=== PATIENT | male | born 1950 | race Caucasian/White ===

== ENCOUNTER 2021-05-14 09:30 | Outpatient (CLI) | payer MEDICARE, SELFPAY ==
--- NOTE | ~2021-05-14 | XR_ITS ---
EXAMINATION: XR knee LT 3V DATE: 05/14/2021 10:02 INDICATION: Arthropathic psoriasis, unspecified. TECHNIQUE: 3 views of left knee including standing views were obtained. COMPARISON: None. FINDINGS: There is lateral subluxation of patella. No fracture. There is mild osteoarthritis of media l and lateral compartments and moderate osteoarthritis of patellofemoral compartment. There is a smal l knee joint effusion. IMPRESSION: 1. Moderate left knee osteoarthritis. 2. Small left knee joint effusion. Reviewed, dictated and finalized at location A.
--- NOTE | ~2021-05-14 | XR_ITS ---
EXAMINATION: XR cervical spine 4-5V EXAM DATE: 05/14/2021 10:02 INDICATION: L40.50 - Arthropathic psoriasis, unspecified. TECHNIQUE: Cervical spine frontal, lateral, lateral swimmers, and open-mouth odontoid projections. There is no prior study for comparison. FINDINGS: There is moderate disc disease at C5-6, otherwise mild cervical disc disease. There is mod erate to severe cervical facet arthropathy, probably overall moderate uncovertebral joint arthropathy . The vertebral bodies are aligned in the AP dimension. The odontoid process is intact. The lateral masses of C1 line up with C2. Prevertebral soft tissue and pre-dens space are within normal limits. Lung apices are clear. IMPRESSION: Moderate to severe cervical spondylosis. Reviewed, dictated and finalized at location A.
--- NOTE | ~2021-05-14 | XR_ITS ---
EXAMINATION: XR sacroiliac joints min 3V, XR lumbar spine min 4V EXAM DATE: 05/14/2021 10:02 INDICATION: L40.50 - Arthropathic psoriasis, unspecified . TECHNIQUE: Lumber spine frontal, lateral, bilateral oblique projections. Coned down frontal and lat eral L5-S1 lumbar projections for interpretation. Sacroiliac joint frontal, bilateral oblique projec tions. There are no prior studies for comparison. FINDINGS: Mild to moderate diffuse lumbar disc disease, small to moderate endplate osteophytes. Moderate lumbar facet arthropathy. There is mild anterior wedging of the L1 vertebral body, mild compression fractur e but no findings to specifically suggest this is acute. There is moderate symmetric bilateral hip pr imary osteoarthritis. The sacroiliac joints are symmetric with mild to moderate arthritic change, no ankylosis suspected. T here are no bony erosions identified. Mild aortic arterial sclerosis. Calcifications in the pelvis ar e believed to be phleboliths. IMPRESSION: 1. Mild L1 compression fracture probably chronic. 2. Mild to moderate lumbar disc disease, moderate arthropathy. 3. 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 4. Moderate bilateral hip osteoarthritis. Reviewed, dictated and finalized at location A. IMPRESSION: 1. Mild L1 compression fracture probably chronic. 2. Mild to moderate lumbar disc disease, moderate arthropathy. 3. 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 4. Moderate bilateral hip osteoarthritis.
--- NOTE | ~2021-05-14 | XR_ITS ---
EXAMINATION: XR knee RT 3V DATE: 05/14/2021 10:02 INDICATION: Arthropathic psoriasis, unspecified. TECHNIQUE: 3 views of right knee including standing views were obtained. COMPARISON: None. FINDINGS: Bone alignment is normal. No fracture. There is mild tricompartmental osteoarthritis. There is a small knee joint effusion. IMPRESSION: 1. Mild right knee osteoarthritis. 2. Small right knee joint effusion. Reviewed, dictated and finalized at location A.
== END 2021-05-14 09:31 | disposition home or self-care (01) ==
PROVIDERS: PCP Family Medicine; Visit Provider Internal Medicine
DX: L40.50 Arthropathic psoriasis, unspecified (principal); M47.812 Spondylosis without myelopathy or radiculopathy, cervical region; M48.56XA Collapsed vertebra, not elsewhere classified, lumbar region, initial encounter for fracture; M51.9 Unspecified thoracic, thoracolumbar and lumbosacral intervertebral disc disorder; M47.898 Other spondylosis, sacral and sacrococcygeal region; M16.0 Bilateral primary osteoarthritis of hip; M25.461 Effusion, right knee; M25.462 Effusion, left knee; M17.0 Bilateral primary osteoarthritis of knee
CPT/HCPCS: 72050; 72110; 72202; 73562

== ENCOUNTER 2021-12-16 00:07 | Day surgery (SDC) | payer MEDICARE, SELFPAY ==
[2021-12-09 10:10] VITALS: BMI 24.6
--- NOTE | 2021-12-09 10:26 | PC.NURSE ---
Report to the Outpatient Waiting Room, entrance under the green pavilion located off [facility], at time __7:00AM on date __12/16/21 . Planned Procedure Time: __9:00AM . Time changes happen often and if your time is changed the preop area will call you the afternoon before. - You and your visitor will be asked to self-screen and do not enter if you have any COVID symptoms. - We encourage only one visitor and NO visitors under age 16 are allowed at this time. Your visitor will receive communication by the phone number that is given day of service. - The patient visitor is requested to social distance or may leave the building when not with patient due to restrictions. - A mask is required within the hospital. Patients may have clear liquids (water, carbonated beverages, clear teas, apple juice) until 3 hours prior to surgery with a maximum of 20 ounces. - No food from midnight until time of surgery - Infants may have breast milk until 4 hours before surgery, formula 6 hours prior to surgery. - Children will be allowed to drink immediately following surgery. If applicable, please bring a bottle or sippy cup to assist with drinking. Juice, water, soda, and popsicles are readily available. For infants on formula, please bring formula the day of surgery. Pacifiers are allowed. Take the following medications with a SIP of water the morning of surgery: ___NONE Medications to discontinue per physician ___HOLD ALL VITAMINS/SUPPLEMENTS 3 DAYS PRE-OP Date to take last dose___12/12/21 Please no make-up, nail german, hairspray, perfume, deodorant, or body powder the day of surgery. No jewelry (including any body piercings) or valuables the day of surgery, leave them at home. Please take a shower or bath the night before, or the morning of, surgery with an antibacterial soap. Wear comfortable, loose fitting clothing. Children are encouraged to wear pajamas. - Jewelry must be removed prior to entering the operating room. Rings and piercings that are not removed may be cut off. - The hospital will not accept responsibility for valuables. - Please leave all valuables, including medications, at home the day of surgery. If you are going home after surgery, a licensed otr tanker truck driver must drive you home. - NO public transportation without another adult. - We recommend that an adult stay with you for 24 hours following discharge. - We also recommend that you do not drive, make important decision, drink alcoholic beverages, or take any drugs that were not prescribed by your health care provider for at least 24 hours after your discharge time. For Pediatric surgeries, we recommend two adults accompany the child home. Follow any additional instructions given to you from your surgeon. If you or anyone in your household have experienced Covid symptoms in the past week, please notify your surgeon or the nurse liaison at the phone number below for possible testing. Telephone instructions given to __PATIENT and asked if any additional questions and then verbalized understanding. Patient advised to call surgeon office or pre surgery nurse liaison [phone] if any additional questions.
[2021-12-16] VITALS (9 sets, daily range): BP systolic 131–173; BP diastolic 67–87; PULSE 55–87; RESP 12–20; TEMP 36.4–36.7; O2SAT 97–100
[2021-12-16] MEDS: ACETAMINOPHEN 500 MG TABLET 1000 MG PO (08:13)
[2021-12-16] MEDS: KETOROLAC 15 MG/ML VIAL (*BKC) IV PUSH (08:13)
[2021-12-16] MEDS: LACTATED RINGERS 1,000 ML 30 ML IV CONT ×2 (08:16→10:51)
--- NOTE | 2021-12-16 08:23 | WPDHPUPDATE1 ---
History and Physical Update Update Date/Time: 12/16/21 08:23 History and Physical has been reviewed, including an updated exam of the patient. There are NO changes in the patient's condition. Risks, benefits, and alternatives have been discussed and questions answered. Patient agrees to proceed with procedure.
--- NOTE | 2021-12-16 08:30 | SUR.PREOP ---
PER DR ORELLANA, YES TO GIVE PATIENT ANCEF 2GM
--- NOTE | 2021-12-16 08:32 | WPDANESEPPF ---
Anes - Initial Pre Proc Eval Procedure: Operation Date: 12/16/21 09:00 Proposed Procedures p Laparoscopic Totally Extraperitoneal Recurrent Right Inguinal Hernia Repair with Mesh, Possible Open - Flaco Santiago MD Date/Time: 12/16/21 08:32 Surgeon: Flaco Santiago MD Pre Op Diagnosis: recurrent right inguinal hernia Patient Data Age: 71 Gender: M Height: 1.78 m Weight: 78 kg Last Vital Signs Temp 97.5 F L 12/16/21 07:10 Pulse 55 L 12/16/21 07:10 Resp 18 12/16/21 07:10 BP 173/73 H 12/16/21 07:10 Pulse Ox 100 12/16/21 07:10 O2 Del Method Room Air 12/16/21 07:10 Allergies Allergy/AdvReac Type Severity Reaction Status Date / Time No Known Allergies Allergy Mild Verified 12/16/21 08:07 Home Medications Medication Instructions Recorded Confirmed Type aspirin 81 mg tablet,delayed 81 mg PO DAILY 03/10/19 12/16/21 History release (Adult Low Dose Aspirin) terazosin 10 mg capsule See Rx Instructions .Route 07/15/21 12/16/21 Rx .COMPLEX #90 caps finasteride 5 mg tablet 5 mg PO DAILY 12/05/21 12/16/21 History omega 4-efo-otu-fish oil 1,200 mg 2 cap PO DAILY 12/05/21 12/16/21 History (144 mg-216 mg) capsule (Fish Oil) tadalafil 20 mg tablet 20 mg PO DAILY 12/05/21 12/16/21 History Patient hx anesthesia problems: none Family hx anesthesia problems: none Results Review: All pre-operative results and documents have been reviewed as part of the pre-operative evaluation. [facility] Past Medical History Medical History (Updated 12/10/21 @ 09:29 by Danny Santamaria MD) BPH loc w urin obs/LUTS Erectile dysfunction Generalized osteoarthritis of multiple sites Gilbert disease Low back pain Psoriatic arthritis (~2017) Psoriatic spondylitis Vasculitis Surgical History Surgical History History of hernia surgery bilateral inguinal hernia repair as infant; Left inguinal hernia repair 20-25 yrs ago Family History Family History Mother Family history of transient ischemic attacks Family history of cardiovascular disease Family history of arthritis Family history of coronary artery disease Family history of malignant neoplasm of kidney Father Family history of Alzheimer's disease Family history of malignant neoplasm of skin Unknown Diabetes mellitus Social History Social History Social History: Caffeine- diet soda daily Smoking status: Never smoker Second hand tobacco smoke exposure: No Alcohol intake: current Drinks per week: 2 Alcohol use details: red wine Substance use: never Substance use type: does not use Living arrangements: with family Additional living arrangements comments: SPOUSE Spiritual care concerns: No Anes - Eval Final PreProcedure Day of Procedure 12/16/21 08:32 Patient weight: normal Heart: regular rate and rhythm Lungs: clear to auscultation Airway: Mallampati scale class III Neurological: alert and oriented Last oral intake: >/= 8 hours ASA classification: II Emergent: no Anesthetic plan: proceed Anesthesia type and monitoring: general ETT (may need glidescope) and standard monitoring Results Review: All pre-operative results and documents have been reviewed as part of the pre-operative evaluation. Informed Consent: The patient's anesthetic plan and its attendant risks and benefits were discussed with the patient/family/POA. Questions were solicited and answers provided to the satisfaction of the patient/family/POA.
[2021-12-16] MEDS: ceFAZolin 2 GM/D5W 50 ML 2 GM/50 ML BAG IVPB (08:50)
[2021-12-16] MEDS: BUPIVACAINE/EPINEPHRINE 0.25% 50 ML VIAL 20 ML INFILTRATE (09:50)
--- NOTE | 2021-12-16 11:09 | W.PM.PROC2 ---
Procedure Note - Detailed Date of Procedure 12/16/21 Pre-op Diagnosis recurrent right inguinal hernia Post-op Diagnosis Other ( unilateral recurrent Direct inguinal hernia) Procedure Performed 1. laparoscopic totally extraperitoneal right recurrent inguinal hernia repair with mesh Surgeon Flaco Santiago MD Belt Buckle Maker RINA Lester ,[place] microbiology lab assistant Anesthesia General Indications bulging and pain on the Rt. groin. Please see history and physical for further details. This was starting to interfere with his typical activities which include pickleball. Findings Patient had a fairly good size direct inguinal hernia occurring just medial to the epigastric vessels on the right. The normal peritoneum on the right was tethered at the edge of the direct pseudo sac but was able to be and nicely pulled back toward the retroperitoneum, without getting a hole in it. Description of Procedure After appropriate marking of the operative site prior to surgery, the patient was taken to the operating room. After induction of adequate general endotracheal anesthesia by [facility] staff, the patient was carefully prepped and draped in a sterile fashion. A time-out was performed confirming the procedure and site of surgery on the right. Following this, local anesthetic was infiltrated into the umbilical area and a vertical incision was made just below the umbilicus. I carefully dissected down to the the anterior rectus sheath on the right and then made a 1 cm vertical slit in the fascia just off the midline. The rectus muscle was retracted to right and then just in front of the posterior rectus sheath, a dissecting balloon was passed onto the pubic bone. After placing slight pressure on the left groin area, this was insufflated with 35 pumps, while watching with the 0 degree laparoscope. It appeared that I was in the proper plane. Following this, the dissecting balloon was removed and replaced by a 130mm Perez cannula with a circular 30 cc conforming balloon. Following this, the 0 degree laparoscope was used to carefully place two 5mm [employer] slim trocars, just to the left of midline. One suprapubic and other one correction between the umbilicus and the pubic bone. Tedious dissection then occurred in the preperitoneal space exposing the Jesu's ligament, the cord structures, the muscular tissue anteriorly, and the retroperitoneum. Following this the freed-up pseudo sac of this direct hernia was grasped with a grasper through the more inferior 5 mm port and then a 5 mm Tacker was placed through the higher 5 mm port and 4 tacks were used to tack the pseudo sac to the muscle just anterior to the pubic tubercle. This nicely obliterated the space that had been previously occupied by the direct inguinal hernia. The pre-peritoneal fat was then able to be dissected back and we could visualize the posterior edge of the peritoneum. I then dissected up to the level of the umbilicus and it was ready for mesh placement. After carefully confirming all sites and that the mesh would cover the direct space, I carefully rolled the Large Lite 3D Bard mesh and slid this through the 12 mm trocar at the umbilical level down into the preperitoneal space. This unfurled nicely and sat nicely against the right groin structures. It nicely covered all spaces and it went back nicely into the preperitoneal space along the anterior-superior iliac spine. I then again placed the 5 mm Tacker through the more cephalad 5 mm port and placed 2 tacks through the mesh into the anterior abdominal wall medial to the epigastric vessels and also to lateral to the epigastric vessels. One was also placed through the mesh into the Jesu's ligament. I took a picture of it carefully, which showed that the mesh will cover the preperitoneal groin well, and had come down to the posterior border of the peritoneum. Once this was accomplished, I took the patient out of Trendelenburg position, rotated the samuel
--- NOTE | 2021-12-16 14:24 | SUR.PHASEII ---
1230 PATIENT VOIDED WITH GOOD STREAM X 1.
== END 2021-12-16 12:51 | disposition home or self-care (01) ==
PROVIDERS: PCP Family Medicine; Visit Provider Surgery
PROC: (CPT 49650; principal; 2021-12-16 09:00)
DX: K40.91 Unilateral inguinal hernia, without obstruction or gangrene, recurrent (principal); N40.1 Benign prostatic hyperplasia with lower urinary tract symptoms; N13.8 Other obstructive and reflux uropathy; L40.50 Arthropathic psoriasis, unspecified; E80.4 Gilbert syndrome; Z79.82 Long term (current) use of aspirin
CPT/HCPCS: 49651; 36415; 86850; 86900; 86901; A9270; C1781; J0330; J0690; J1885; J2250; J2405; J2704; J7030; J7120

== ENCOUNTER 2023-09-21 07:37 | Outpatient (NON) | payer MEDICARE, SELFPAY | END 2023-09-21 07:38 | disposition home or self-care (01) | LOC: ANHLAB 09-22 07:40 | PROVIDERS: PCP Family Medicine; Visit Provider Internal Medicine Gastroenterology | DX: Z12.11 Encounter for screening for malignant neoplasm of colon (principal); D12.5 Benign neoplasm of sigmoid colon | CPT/HCPCS: 88305 ==

== ENCOUNTER 2023-09-21 08:23 | Day surgery (SDC) | payer MEDICARE, SELFPAY ==
[2023-08-07 12:03] VITALS: BMI 24.5
[2023-09-09 10:54] VITALS: BMI 23.7
--- NOTE | 2023-09-09 11:14 | PC.NURSE ---
PT STATES HE HAS NOT RECEIVED BOWEL PREP INSTRUCTIONS YET. PT GIVEN GI OFFICE PHONE NUMBER AND INSTRUCTED TO CALL TODAY TO GET THE BOWEL PREP PAPERS.
--- NOTE | 2023-09-15 12:48 | PM.HPGS ---
History of Present Illness History of Present Illness Consent: Risks, benefits, and alternatives have been discussed and questions answered. Patient agrees to proceed with procedure. Chief complaint: Neoplasm screening. Narrative: Robert Reynoso is a 73 year old male who is referred for colon cancer screening. Review of Systems Review of Systems: All systems reviewed & are unremarkable except as noted in HPI and below PMFSH Past Medical History Medical History BPH loc w urin obs/LUTS Erectile dysfunction Generalized osteoarthritis of multiple sites Gilbert disease Low back pain Psoriatic arthritis (~2017) Psoriatic spondylitis Vasculitis Viral pneumonitis Surgical History Surgical History History of cataract surgery History of hernia surgery bilateral inguinal hernia repair as infant; Left inguinal hernia repair 20-25 yrs ago History of right inguinal hernia repair Laparoscopic totally extraperitoneal right recurrent inguinal hernia repair with mesh 12/16/21 Family History Family History Mother Family history of transient ischemic attacks Family history of cardiovascular disease Family history of arthritis Family history of coronary artery disease Family history of malignant neoplasm of kidney Father Family history of Alzheimer's disease Family history of malignant neoplasm of skin Unknown Diabetes mellitus Social History Social History Social History: Caffeine- diet soda daily Smoking status: Never smoker Second hand tobacco smoke exposure: No Alcohol intake: current Drinks per week: 2 Alcohol use details: red wine Substance use: never Substance use type: does not use Living arrangements: with family Additional living arrangements comments: SPOUSE Occupation/Education: retired Spiritual care concerns: No Meds Home Medications and Allergies Home Medications Medication Instructions Recorded Confirmed Type aspirin 81 mg tablet,delayed 81 mg PO DAILY 03/10/19 09/09/23 History release (Adult Low Dose Aspirin) finasteride 5 mg tablet 5 mg PO DAILY 12/05/21 09/09/23 History omega 4-huc-qrg-fish oil 1,200 mg 2 cap PO DAILY 12/05/21 09/09/23 History (144 mg-216 mg) capsule (Fish Oil) tadalafil 20 mg tablet 20 mg PO DAILY 12/05/21 09/09/23 History terazosin 10 mg capsule See Rx Instructions .Route 01/09/23 09/09/23 Rx .COMPLEX #90 caps Allergies Allergy/AdvReac Type Severity Reaction Status Date / Time No Known Allergies Allergy Mild Verified 09/21/23 09:18 Exam Resp: Auscultation: clear to auscultation bilaterally Cardio: Rate: regular rate Rhythm: regular rhythm GI: GI Palp: Yes Soft to palpation and No Tenderness to palpation present (GI) Assessment and Plan Assessment and plan (1) Colon cancer screening: Code(s): Z12.11 - Encounter for screening for malignant neoplasm of colon Status: Acute Assessment and Plan: Colonoscopy with possible biopsy or polypectomy or cautery or injection of substances.
[2023-09-21 09:20] VITALS: BP 156/81; PULSE 56; RESP 18; TEMP 36.6; O2SAT 99
[2023-09-21] MEDS: LACTATED RINGERS 1,000 ML 150 ML IV CONT (09:31)
--- NOTE | 2023-09-21 09:50 | WPDANESEPPF ---
Anes - Initial Pre Proc Eval Procedure: Operation Date: 09/21/23 10:00 Proposed Procedures p Screening Colonoscopy - Daniel Guajardo MD Date/Time: 09/21/23 09:50 Surgeon: Daniel Guajardo MD Pre Op Diagnosis: Neoplasm screening. Patient Data Age: 73 Gender: M Height: 1.78 m Weight: 71.05 kg Last Vital Signs Temp 36.6 C 09/21/23 09:20 Pulse 56 L 09/21/23 09:20 Resp 18 09/21/23 09:20 BP 156/81 H 09/21/23 09:20 Pulse Ox 99 09/21/23 09:20 O2 Del Method Room Air 09/21/23 09:20 Allergies Allergy/AdvReac Type Severity Reaction Status Date / Time No Known Allergies Allergy Mild Verified 09/21/23 09:18 Home Medications Medication Instructions Recorded Confirmed Type aspirin 81 mg tablet,delayed 81 mg PO DAILY 03/10/19 09/09/23 History release (Adult Low Dose Aspirin) finasteride 5 mg tablet 5 mg PO DAILY 12/05/21 09/09/23 History omega 1-eaq-cix-fish oil 1,200 mg 2 cap PO DAILY 12/05/21 09/09/23 History (144 mg-216 mg) capsule (Fish Oil) tadalafil 20 mg tablet 20 mg PO DAILY 12/05/21 09/09/23 History terazosin 10 mg capsule See Rx Instructions .Route 01/09/23 09/09/23 Rx .COMPLEX #90 caps Patient hx anesthesia problems: none Family hx anesthesia problems: none Results Review: All pre-operative results and documents have been reviewed as part of the pre-operative evaluation. [facility] Past Medical History Medical History BPH loc w urin obs/LUTS Erectile dysfunction Generalized osteoarthritis of multiple sites Gilbert disease Low back pain Psoriatic arthritis (~2017) Psoriatic spondylitis Vasculitis Viral pneumonitis Surgical History Surgical History History of cataract surgery History of hernia surgery bilateral inguinal hernia repair as infant; Left inguinal hernia repair 20-25 yrs ago History of right inguinal hernia repair Laparoscopic totally extraperitoneal right recurrent inguinal hernia repair with mesh 12/16/21 Family History Family History Mother Family history of transient ischemic attacks Family history of cardiovascular disease Family history of arthritis Family history of coronary artery disease Family history of malignant neoplasm of kidney Father Family history of Alzheimer's disease Family history of malignant neoplasm of skin Unknown Diabetes mellitus Social History Social History Social History: Caffeine- diet soda daily Smoking status: Never smoker Second hand tobacco smoke exposure: No Alcohol intake: current Drinks per week: 2 Alcohol use details: red wine Substance use: never Substance use type: does not use Living arrangements: with family Additional living arrangements comments: [facility]OUSE Occupation/Education: retired Spiritual care concerns: No Anes - Eval Final PreProcedure Day of Procedure 09/21/23 09:50 Patient weight: normal Heart: regular rate and rhythm Lungs: clear to auscultation Airway: Mallampati scale class III and special considerations poor opening Neurological: alert and oriented Last oral intake: >/= 8 hours ASA classification: II Emergent: no Anesthetic plan: proceed Anesthesia type and monitoring: general GIVS and standard monitoring Results Review: All pre-operative results and documents have been reviewed as part of the pre-operative evaluation. Informed Consent: The patient's anesthetic plan and its attendant risks and benefits were discussed with the patient/family/POA. Questions were solicited and answers provided to the satisfaction of the patient/family/POA.
[2023-09-21 10:15] VITALS: BP 123/67; PULSE 57; RESP 17; O2SAT 99
--- NOTE | 2023-09-21 10:22 | WPDANESPN ---
Anes - Prog Note Post-Op Date/Time: 09/21/23 10:22 Cardiovascular status: normal Respiratory status: normal Airway patency: baseline Mental status: baseline Post-Op hydration status: normal Vital Signs: Last Vital Signs Temp 36.6 C 09/21/23 09:20 Pulse 57 L 09/21/23 10:15 Resp 17 09/21/23 10:15 BP 123/67 09/21/23 10:15 Pulse Ox 99 09/21/23 10:15 O2 Del Method Room Air 09/21/23 10:15 Pain Score (VAS): 0/10 I/O: Intake & Output 09/20/23 09/21/23 09/21/23 23:59 07:59 15:59 Intake Total 500 Balance 500 Patient Feedback: Patient satisfied with anesthetic care.
[2023-09-21 10:25] VITALS: BP 131/76; PULSE 51; RESP 18; O2SAT 100
[2023-09-21 10:35] VITALS: BP 166/71; PULSE 48; RESP 18; O2SAT 100
== END 2023-09-21 10:44 | disposition home or self-care (01) ==
PROVIDERS: PCP Family Medicine; Visit Provider Internal Medicine Gastroenterology
PROC: 0DJD8ZZ Inspection of Lower Intestinal Tract, Via Natural or Artificial Opening Endoscopic (ICD-10-PCS; CPT 45378; principal; 2023-09-21 10:00)
DX: Z12.11 Encounter for screening for malignant neoplasm of colon (principal); D12.5 Benign neoplasm of sigmoid colon; K57.30 Diverticulosis of large intestine without perforation or abscess without bleeding; K64.8 Other hemorrhoids
CPT/HCPCS: 45385; 45381

== ENCOUNTER 2024-07-14 08:43 | Outpatient (CLI) | payer MEDICARE, SELFPAY ==
--- OUTSIDE RECORDS SUMMARY | 2024-07-14 08:58 | XMS_ITS | Clinical Summary ---
Author Organization [facility] [address] [place] [address] Care Team Providers Care Motor Installer Name Role Phone Stefany Naranjo MD Primary Care Provi mari Allergies No known active allergies Medications terazosin (HYTRIN) 10 mg capsule TK 1 C PO QHS 10/09/2019 Active Active Problems No known active problems Social History Tobacco Use Types Packs/Day Years Used Date Smoking Tobacco: Never Smokeless Tobacco: Never Sex and Gender Information Value Date Recorded Sex Assigned at Not on file Legal Sex Male 1:58 PM CDT Gender Identity Not on file Sexual Orientation Not on file Last Filed Vital Signs Vital Sign Reading Time Taken Comments Blood Pressure 146/76 10/31/2019 10:56 AM CDT Pulse 59 10/31/2019 10:56 AM CDT Temperature - - Respiratory Rate - - Oxygen Saturation - - Inhaled Oxygen Concentration - - Weight 75.8 kg (167 lb) 10/31/2019 10:56 AM CDT Height 177.8 cm (5' 10) 10/31/2019 10:56 AM CDT Body Mass Index 23.96 10/31/2019 10:56 AM CDT Plan of Treatment Health Maintenance Due Date Last Done Comments DTAP/TDAP/TD VACCINES (1 - Tdap) 06/13/1970 COLORECTAL SCREENING 06/13/1996 Colorectal Cancer Screening 06/13/1996 FIT-DNA Q 3 years 06/13/1996 FIT/FOBT Q 1 year 06/13/1996 Flex Sig/CT Colonography Q 5 years 06/13/1996 PNEUMOCOCCAL VACCINE 50+ YEARS (1 of 1 - PCV) 06/14/19 02 ZOSTER VACCINE (1 of 2) 06/13/2001 INFLUENZA VACCINE (#1) 2023 RSV VACCINE (60+ or ) (1 - 1-dose 75+ series) 06/13/2026 Insurance [employer] O OPEN ACCESS Care Teams Motor Installer Relationship Specialty Start Date End Date Stefany Naranjo MD [address] [place] [address] PCP - General Family Practice 10/14/19
--- OUTSIDE RECORDS SUMMARY | 2024-07-14 08:58 | XMS_ITS | Clinical Summary ---
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 This disclosure is being madepursuant to the Care Everywhere program and may not contain all information available regarding this patient. Last updated 17.[facility] Allergies No known active allergies Medications * Be aware that medications may not be up to date on this document. Alwaysverify current medications with the patient. finasteride (Proscar) 5 MG tablet Take 1 (one) tablet by mouth once daily 10/21/2023 Active terazosin (Hytrin) 10 MG capsule Take 1 (one) capsule by mouth at bedtime 10/14/2023 Active sildenafil (Viagra) 100 MG tablet Take 1 (one) tablet by mouth once daily as needed 12/22/2022 Active celecoxib (CeleBREX) 200 MG capsule Take 1 (one) capsule by mouth 2 times daily 60 capsule 5 12/08/2023 Active Social History Tobacco Use Types Packs/Day Years Used Date Smoking Tobacco: Never Smokeless Tobacco: Never Tobacco Cessation:Counseling Given: Not Answered Sex and Gender Information Value Date Recorded Sex Assigned at Not on file Legal Sex Male 12:42 PM CDT Gender Identity Not on file Sexual Orientation Not on file Last Filed Vital Signs Vital Sign Reading Time Taken Comments Blood Pressure - - Pulse - - Temperature - - Respiratory Rate - - Oxygen Saturation - - Inhaled Oxygen Concentration - - Weight 74.8 kg (165 lb) 12/08/2023 12:04 PM CDT Height 177.8 cm (5' 10) 12/08/2023 12:04 PM CDT Body Mass Index 23.68 12/08/2023 12:04 PM CDT Plan of Treatment Health Maintenance Due Date Last Done Comments COLOGUARD (AGES 45-75) - COL ON CA SCREENING 1950 COLON MONITORING 1951 COLONOSCOPY - COLON CA SCREENING 1950 CT COLONOGRAPHY - COLON CA SCREENING 1950 Colorectal Cancer Screening 1950 FIT - COLON CA SCREENING 1951 FLEX SIG - COLON CA SCREENING 1950 LIPID TESTING 1950 HEPATITIS C SCREENING 06/09/1969 DTAP/TDAP/TD VACCINES (1 - Tdap) 06/13/1970 PNEUMOCOCCAL VACCINE 50+ (1 of 1 - PCV) 06/13/2001 ZOSTER VACCINE (1 of 2) 06/13/2001 COVID-19 VACCINE ( - 2023-2 5 season) 2023 DEPRESSION SCREENING 02/10/2024 MEDICARE AWV CALENDAR YEAR 2024 INFLUENZA VACCINE (Season Ended) 2024 Respiratory Syncytial Virus (RSV) Vaccine Pt: or over 60 yrs (1 - 1-dose 75+ series) 06/13/2026 HEPATITIS B VACCINE Aged Out No longe r eligible based on patient's age to complete this topic HIB VACCINE Aged Out No longer eligi ble based on patient's age to complete this topic HPV VACCINE Aged Out No longer eligi ble based on patient's age to complete this topic MENINGOCOCCAL (Group B) VACC INE SHARED DECISION-MAKING Aged Out No longer eligibl e based on patient's age to complete this topic MENINGOCOCCAL GROUPS A/C/Y/W VACCINE Aged Out No longer eligible b ased on patient's age to complete this topic Insurance SELF PAY NO INSURANCE Member Subscriber Plan / Payer (Ef fective for All Dates) Name:Eliseo Reynoso Member ID:Not on file Relation to Subscriber:Not on file Name:ELISEO REYNOSO Subscriber ID:Not on file (Home) Address: [address] [place] [address] Payer ID:Not on file Group ID:Not on file Type:Self Pay Address: [place], [place] [employer] MANAGED MEDICARE ADV Care Teams Ironworker Apprentice Relationship Specialty Start Date End Date Rigo Ferreira MD [address] [place] [id number] PCP - General Family Medicine 12/08/23
[2024-07-14 13:41] LABS: Alanine Aminotransferase 50 U/L (6-50); Albumin Level 4.4 g/dL (3.5-5.1); Alkaline Phosphatase 41 U/L (38-126); Anion Gap 6 mmol/L (4-12); Aspartate Amino Transferase 50 U/L (17-59); Blood Urea Nitrogen 20 mg/dL (9-20); Calcium 8.9 mg/dL (8.4-10.2); Carbon Dioxide 28 mmol/L (22-30); Chloride 106 mmol/L (98-107); Cholesterol 140 mg/dL (0-200); Estimated Glomerular Filt Rate > 60; Glucose 96 mg/dL (65-110); HDL Direct 48 mg/dL; LDL Cholesterol Direct 56 mg/dL; Potassium 4.2 mmol/L (3.4-5.0); Sodium 140 mmol/L (137-145); Triglycerides 146 mg/dL (<150)
== END 2024-07-14 08:44 | disposition home or self-care (01) ==
PROVIDERS: PCP Family Medicine; Visit Provider Family Medicine
DX: E78.5 Hyperlipidemia, unspecified (principal)
CPT/HCPCS: 36415; 80053; 80061